=== PATIENT | female | born 1950 ===

== ENCOUNTER 2018-11-15 10:04 | Emergency (ER) | payer OTHER ==
[~2018-11-15] VITALS: Ht 157.5 cm; Wt 71.7 kg
[~2018-11-15 10:04] MED LIST: ACIDOPHILUS1 EAC3 PO; CIPRO500 MG PO; DICY10CA PO; FIORICET 50-301 EACH PO; FIORICET TABLET1 TAB; FIORICET TABLET1 TAB PO; ZANTAC150 MG PO
== END 2018-11-15 19:31 | disposition home or self-care (01) ==
LOC: ER 10:04
DX: K57.30 Diverticulosis of large intestine without perforation or abscess without bleeding (principal); R10.12 Left upper quadrant pain